=== PATIENT | male | born 1950 | race Two or more races ===

== ENCOUNTER 2023-06-01 09:51 | Emergency (ER) | payer OTHER ==
[~2023-06-01] VITALS: Ht 188 cm; Wt 93.4 kg
[2023-06-01 16:09] VITALS: BP 146/82; PULSE 67; RESP 18; TEMP 98.3; O2SAT 98
[2023-06-01] MEDS ORDERED: AMOX500T3 PO (16:20)
[2023-06-01] MEDS ORDERED: CHL12OR MT (16:20)
[2023-06-01] MEDS ORDERED: ACET-1304 PO (16:20)
== END 2023-06-01 16:21 | disposition home or self-care (01) ==
LOC: ER 09:51
DX: S03.2XXA Dislocation of tooth, initial encounter (principal); W18.09XA Striking against other object with subsequent fall, initial encounter; Y93.89 Activity, other specified; Y92.89 Other specified places as the place of occurrence of the external cause; Y99.8 Other external cause status

== ENCOUNTER 2025-06-13 12:43 | Emergency (ER) | payer OTHER, MEDICAID ==
[~2025-06-13] VITALS: Ht 182.9 cm; Wt 85.3 kg
[~2025-06-13 12:43] MED LIST: ACET-1304 PO; AMOX500T3 PO; CHL12OR MT
--- NOTE | 2025-06-13 12:57 | ECG ---
[facility] Test Date: 2025-06-13 Test Time: 12:51:33 Pat Name: SRINIVASA NEVILLE Department: ED Room: Gender: M [employer]: GV : 1950 Requested By: DONALDO CALDWELL Order Number: [id number] Reading MD: Marcus Nelson Measurements Intervals [place] Rate: 70 P: 66 [place]: 157 QRS: -49 QRSD: 110 T: 38 QT: 414 QTc: 447 Interpretive Statements Sinus rhythm Atrial premature complex Left anterior fascicular block Low voltage, precordial leads Consider right ventricular hypertrophy Electronically Signed On 06-14-2025 17:58:22 PST by Marucs Nelson Please click the below link to view image of tracing.
--- NOTE | 2025-06-13 13:03 | ED.PDOC ---
History of Present Illness HPI Comments This is a 74 year old male presenting to the ED with chief complaint of abdominal pain. Patient is a poor historian due to history of dementia. Patient reports that he has been experiencing epigastric abdominal pain with associated SOB for the past few days. Patient denies any fever, cough, dizziness, headache, N/V/D, or chills. Chief Complaint: Chest Pain Time Seen by MD: 13:02 Primary Care Provider: OMAR Mead Notes: Nurses Notes, Medications, Allergies Allergies: Coded Allergies: NO KNOWN ALLERGIES (Unverified , 06/01/23) Home Meds Active Scripts Chlorhexidine Gluconate (Mouth (CHLORHEXIDINE ORAL RINSE) 473 Ml So, 15 ML MT Q12HR for 7 Days, #1 BOT 0 Refills Prov:KATHERINE ESTRADA NP 06/01/23 Acetaminophen (Tylenol Extra Strength) 500 Mg Tab, 500 MG PO Q6HPRN PRN for 10 Days, #40 TAB 0 Refills Prov:KATHERINE ESTRADA NP 06/01/23 Amoxicillin Trihydrate (Amoxicillin) 500 Mg Tab, 1 TAB PO BID for 10 Days, #20 TAB 0 Refills Prov:KATHERINE ESTRADA NP 06/01/23 Information Source: Patient Mode of Arrival: Ambulatory Severity: Moderate Timing: Days Duration: Since onset Prehospital treatment: None Past Medical History PAST MEDICAL HISTORY: Dementia Surgical History: Denies all surgeries Family History Family History: Reviewed,noncontributory to illness Social History Smoker: Non-Smoker Alcohol: Denies ETOH Use Drugs: Denies Drug Use Lives In: Home Constitutional: denies: chills, diaphoresis, fatigue, fever, malaise, sweats, weakness, others EENTM: denies: blurred vision, double vision, ear bleeding, ear discharge, ear drainage, ear pain, ear ringing, eye pain, eye redness, hearing loss, mouth pain, mouth swelling, nasal discharge, nose bleeding, nose congestion, nose pain, photophobia, tearing, throat pain, throat swelling, voice changes, others Respiratory: reports: shortness of breath; denies: cough, hemoptysis, orthopnea, SOB at rest, SOB with excertion, stridor, wheezing, others Cardiovascular: denies: chest pain, dizzy spells, diaphoresis, Dyspnea on exertion, edema, irregular heart beat, left arm pain, lightheadedness, palpitations, PND, syncope, others Gastrointestinal: reports: abdominal pain; denies: abdomen distended, blood streaked bowels, constipated, diarrhea, dysphagia, difficulty swallowing, hematemesis, melena, nausea, poor appetite, poor fluid intake, rectal bleeding, rectal pain, vomiting, others Genitourinary: denies: burning, dysuria, flank pain, frequency, hematuria, incontinence, penile discharge, penile sore, pain, testicle pain, testicle swelling, urgency, others Neurological: denies: dizziness, fainting, headache, left sided numbness, left sided weakness, numbness, paresthesia, pre-existing deficit, right sided numbness, right sided weakness, seizure, speech problems, tingling, tremors, weakness, others Musculoskeletal: denies: back pain, gout, joint pain, joint swelling, muscle pain, muscle stiffness, neck pain, others Integumetry: denies: bruises, change in color, change in hair/nails, dryness, laceration, lesions, lumps, rash, wounds, others Allergic/Immunocompromised: denies: Difficulty Healing, Frequent Infections, Hives, Itching, others Hematologic/Lymphatic: denies: anemia, blood clots, easy bleeding, easy bruising, swollen glands, others Endocrine: denies: excessive hunger, excessive sweating, excessive thirst, excessive urination, flushing, intolerance to cold, intolerance to heat, unexplained weight gain, unexplained weight loss, others Psychiatric: denies: anxiety, bipolar disorder, depression, hopeless, panic disorder, schizophrenia, sleepless, suicidal, others All Other Systems: Reviewed and Negative Physical Exam General Appearance: No Apparent Distress, Normal HEENT: Normal ENT Inspection, Pharynx Normal, TMs Normal Neck: Full Range of Motion, Non-Tender, Normal, Normal Inspection Respiratory: Chest Non-Tender, Lungs Clear, No Accessory Muscle Use, No Respiratory Distress, Normal Breath Sounds Cardiovascular: No Edema, No JVD, No Murmur, No Gallop, Normal Peripheral Pulses, Regular Rate/Rhythm Breast Exam: Deferred Gastrointestinal: No Organomegaly, Non Tender, No Pulsatile Mass, Normal Bowel Sounds, Soft Genitalia: Deferred Pelvic: Deferred Rectal: Deferred Extremities: No calf tenderness, Normal capillary refill, Normal inspection, Normal range of motion, Non-tender, No pedal edema Musculoskeletal : Apperance: Normal Neurologic: Alert, school psychometrist II-XII nml as Tested, No Motor Deficits, Normal Affect, Normal Mood, No Sensory Deficits Cerebellar Function: Normal Reflexes: Normal Skin: Dry, Normal Color, Warm Lymphatic: No Adenopathy Was a procedure done? Was a procedure done?: No EKG EKG : Pulse Rate (adult): 70 [place]: Normal Hypertrophy: None ST: Normal Comments LAFB Differential Dx Considerations may include: ACS vs Gastritis/PUD vs Costochondritis X-Ray, Labs, Meds, VS Vital Signs Date Time Temp Pulse Resp B/P (MAP) Pulse Ox O2 Delivery O2 Flow Rate FiO2 06/13/25 15:23 97.9 06/13/25 15:10 97.9 66 16 132/80 (97) 98 97.9 06/13/25 15:10 Room Air* 0 21 06/13/25 13:58 61 06/13/25 12:51 98.1 66 16 135/70 98 98.1 06/13/25 12:51 70 Lab Test 06/13/25 14:19 06/13/25 13:35 Range/Units Troponin I High Sensitivity 5 5 </=54 ng/L White Blood Count 5.2 4.4-10.8 10^3/uL Red Blood Count 5.22 4.5-5.90 10^6/uL Hemoglobin 15.6 13.5-17.5 g/dL Hematocrit 45.5 41.0-53.0 % Mean Corpuscular Volume 87.1 80.0-100.0 fL Mean Corpuscular Hemoglobin 29.9 28.0-32.0 pg Mean Corpuscular Hemoglobin Concent 34.3 32.0-36.0 g/dL Red Cell Distribution Width 14.1 11.8-14.3 % Platelet Count 209 140-450 10^3/uL Mean Platelet Volume 8.1 6.9-10.8 fL Neutrophils (%) (Auto) 62.7 37.0-80.0 % Lymphocytes (%) (Auto) 23.8 10.0-50.0 % Monocytes (%) (Auto) 9.9 0.0-12.0 % Eosinophils (%) (Auto) 2.7 0.0-7.0 % Basophils (%) (Auto) 0.9 0.0-2.0 % Neutrophils # (Auto) 3.3 1.6-8.6 10 ^3/uL Lymphocytes # (Auto) 1.2 0.4-5.4 10 ^3/uL Monocytes # (Auto) 0.5 0-1.3 10 ^3/uL Eosinophils # (Auto) 0.1 0-0.8 10 ^3/uL Basophils # (Auto) 0 0-0.2 10 ^3/uL Nucleated Red Blood Cells 0.1 % Sodium Level 142 136-145 mmol/L Potassium Level 4.1 3.5-5.1 mmol/L Chloride Level 103 98-107 mmol/L Carbon Dioxide Level 30 20-31 mmol/L Anion Gap 9 5-15 Blood Urea Nitrogen 18 9-23 mg/dL Creatinine 1.09 0.700-1.30 mg/dL Glomerular Filtration Rate Calc 72 >90 mL/min BUN/Creatinine Ratio 16.5 10.0-20.0 Serum Glucose 92 74-106 mg/dL Calcium Level 10.2 8.7-10.4 mg/dL Total Bilirubin 0.8 0.2-1.0 mg/dL Aspartate Amino Transferase (AST) 20 13-40 U/L Alanine Aminotransferase (ALT) 24 7-40 U/L Alkaline Phosphatase 60 46-116 U/L Total Protein 6.9 5.7-8.2 g/dL Albumin 4.4 3.2-4.8 g/dL Lipase 36 12-53 U/L Current Medications Medications (Trade) Dose Ordered Sig/Nikki Route Start Time Stop Time Status Last Admin Famotidine (Pepcid Tablet) 20 mg ONCE ONCE PO 06/13/25 13:30 06/13/25 13:31 DC 06/13/25 15:23 Al Hydrox/Mg Hydrox/Simethicone (Maalox Plus) 30 ml ONCE ONCE PO 06/13/25 13:30 06/13/25 13:31 DC 06/13/25 15:23 Acetaminophen (Tylenol Tablet) 650 mg ONCE ONCE PO 06/13/25 13:30 06/13/25 13:31 DC 06/13/25 15:23 [facility] [id number] [place] [id number] Ph: [phone] DIAGNOSTIC IMAGING Diagnostic Imaging Report : [id number] Signed PATIENT: SRINIVASA NEVILLE ACCT: [id number] UNIT: [id number] : 1950 LOC: ER ROOM / BED: / AGE / SEX: 74 / M ADM STATUS: REG ER SERVICE 1254 ORDERING PHYSICIAN: DONALDO CALDWELL MD PROCEDURE(s): CXRP - CHEST PORTABLE REASON: CP ORDER NUMBER(s): [id number], ACCESSION NUMBER(s): [id number] INDICATION: CP TECHNIQUE: Frontal view of the chest. COMPARISON: None FINDINGS: . The heart and mediastinal contours are grossly unremarkable. There is no evidence of pleural disease. The lungs are clear. The bony structures of the chest are intact without fracture. IMPRESSION: 1. No evidence of acute disease. ATED BY: NIRAV ELLIOTT MD DICTATED DATE/TIME: 06/13/251332 SIGNED BY: NIRAV ELLIOTT MD SIGNED DATE/TIME: 06/13/251332 CC: Time of 1ST Reevaluation: 14:02 Reevaluation 1ST: Unchanged Patient Education/Counseling: Diagnosis, Treatment Family Education/Counseling: No Family Present SEPSIS Sepsis Screen Date sepsis recognized/suspect: Jun 13, 2025 Time Sepsis recognized/suspect: 1253 Recent Procedure: No On Antibiotic Therapy: No Respiratory Rate >20: No Heart Rate >90: No Temp<36 C (96.8 F) or >38.3 C: No SBP <90 or MAP <65 mmHG: No New Acute Mental Status Change: No Is the patient on CPAP, BIPAP,: No Physician Orders Chest Portable (06/13/25 12:54) Troponin-I Hs (06/13/25 15:54) Electrocardigram (06/13/25 15:54) Vital Signs Date Time Temp Pulse Resp B/P (MAP) Pulse Ox O2 Delivery O2 Flow Rate FiO2 06/13/25 15:23 97.9 06/13/25 15:10 97.9 66 16 132/80 (97) 98 97.9 06/13/25 15:10 Room Air* 0 21 06/13/25 13:58 61 06/13/25 12:51 98.1 66 16 135/70 98 98.1 06/13/25 12:51 70 Laboratory Tests Test 06/13/25 13:35 White Blood Count 5.2 10^3/uL (4.4-10.8) Medications Medications Dose Ordered Sig/Nikki Route Start Time Stop Time Status Last Admin Dose Admin Acetaminophen 650 mg ONCE ONCE PO 06/13/25 13:30 06/13/25 13:31 DC 06/13/25 15:23 Al Hydrox/Mg Hydrox/Simethicone 30 ml ONCE ONCE PO 06/13/25 13:30 06/13/25 13:31 DC 06/13/25 15:23 Famotidine 20 mg ONCE ONCE PO 06/13/25 13:30 06/13/25 13:31 DC 06/13/25 15:23 Departure 1 Departure Time of Disposition: 17:00 ([age] year old male with past medical history of dementia who was presenting for midepigastric pain despite stating chest pain. Patient points to his mid abdomen when relaying the area of his discomfort. Given the midepigastric pain suspect likely gastritis, peptic ulcer disease, reflux. Pt reporting midepigastric pain, however, has no nausea or vomiting, mayers s no abdominal distention. It is still passing flatus from below. Consider suspect small-bowel obstruction. Given report of midsternal chest pain consider possible ACS. Pt has a heart score of 3 serial troponins were obtained which came back negative. Acute ischemia. Chest x-ray with no evidence of any acute cardiopulmonary process. Patient with no pleuritic chest pain, no risk factors for PE, does not seem consistent with pulmonary embolism. Given midepigastric discomfort consider possible pancreatitis, however, lipase within normal limits, does not seem consistent with acute pancreatitis. Patient is hemodynamically stable here. Was given oral Tylenol, Pepcid, Maalox for symptoms. Has reassuring workup today and appears comfortable. Stable for discharge further outpatient workup and management.) Impression: Primary Impression: Epigastric abdominal pain Additional Impression: Midsternal chest pain Disposition: HOME / SELF CARE / HOMELESS Condition: Stable Discharged With: Self Critical Care Note Critical Care Time?: No Stability Stability form required: No Heart Score Heart Score: Heart Score Response (Comments) Value History Slightly Suspicious 0 EKG Normal 0 Age >65 2 Risk Factors 1 or 2 risk factors 1 Troponin Normal limit 0 Total 3 I personally scribed for MAMIE TUCKER MD ([email or web address]) on 06/13/25 at 13:03. Electronically submitted by Harpal Gutiérrez ([email or web address]). I personally scribed for MAMIE TUCKER MD ([email or web address]) on 06/13/25 at 18:06. Electronically submitted by Harpal Gutiérrez ([email or web address]). MAMIE TUCKER MD Jun 13, 2025 13:03
--- NOTE | 2025-06-13 13:36 | DVH ---
INDICATION: CP TECHNIQUE: Frontal view of the chest. COMPARISON: None FINDINGS: . The heart and mediastinal contours are grossly unremarkable. There is no evidence of pleural disease. The lungs are clear. The bony structures of the chest are intact without fracture. IMPRESSION: 1. No evidence of acute disease.
[2025-06-13 13:57] LABS: Hematocrit 45.5 % (41.0-53.0); Hemoglobin 15.6 g/dL (13.5-17.5); Mean Corpuscular Hemoglobin 29.9 pg (28.0-32.0); Mean Corpuscular Volume 87.1 fL (80.0-100.0); Nucleated Red Blood Cells % 0.1 %
--- NOTE | 2025-06-13 13:59 | ECG ---
[facility] Test Date: 2025-06-13 Test Time: 13:58:13 Pat Name: SRINIVASA NEVILLE Department: ED Room: Gender: M New Order Clerk: gp : 1950 Requested By: DONALDO CALDWELL Order Number: [id number] Reading MD: Marcus Nelson Measurements Intervals [place] Rate: 61 P: 69 [place]: 152 QRS: -37 QRSD: 105 T: 38 QT: 398 QTc: 401 Interpretive Statements Sinus rhythm Atrial premature complexes Abnormal R-wave progression, early transition Left ventricular hypertrophy Borderline T abnormalities, lateral leads Baseline wander in lead(s) I,II,aVR,aVL,aVF,V2,V3,V4,V5,V6 Electronically Signed On 06-14-2025 17:58:29 PST by Marcus Nelson Please click the below link to view image of tracing.
[2025-06-13 14:06] LABS: Alanine Aminotransferase 24 U/L (7-40); Albumin 4.4 g/dL (3.2-4.8); Alkaline Phosphatase 60 U/L (46-116); Anion Gap 9 (5-15); BUN/Creatinine Ratio 16.5 (10.0-20.0); Bilirubin, Total 0.8 mg/dL (0.2-1.0); Blood Urea Nitrogen 18 mg/dL (9-23); Calcium 10.2 mg/dL (8.7-10.4); Carbon Dioxide 30 mmol/L (20-31); Chloride 103 mmol/L (98-107); Glucose 92 mg/dL (74-106); Potassium 4.1 mmol/L (3.5-5.1); Sodium 142 mmol/L (136-145); Total Protein 6.9 g/dL (5.7-8.2)
[2025-06-13 15:10] VITALS: BP 132/80; RESP 16; O2SAT 98
[2025-06-13 15:23] VITALS: TEMP 97.9
[2025-06-13] MEDS: ACETAMINOPHEN 325 MG TAB PO ONE (15:23)
[2025-06-13] MEDS: FAMOTIDINE 20 MG TAB PO ONE (15:23)
[2025-06-13] MEDS: MAALOX PLUS or MAALOX 30 ML PO ONE (15:23)
[2025-06-13 19:12] VITALS: PULSE 70
== END 2025-06-13 20:46 | disposition home or self-care (01) ==
LOC: ER 12:43
DX: R07.2 Precordial pain (principal); R10.13 Epigastric pain; F03.90 Unspecified dementia, unspecified severity, without behavioral disturbance, psychotic disturbance, mood disturbance, and anxiety; Z79.899 Other long term (current) drug therapy
CPT/HCPCS: 36415; 71045; 80053; 83690; 84484; 85025; 93005